=== PATIENT | male | born 1940 | race Asian ===

== ENCOUNTER 2017-05-11 14:53 | Emergency (ER) | payer OTHER ==
[~2017-05-11] VITALS: Ht 170.2 cm; Wt 72.6 kg
[2017-05-11] MEDS ORDERED: VITA1TAB20 PO (15:09)
[2017-05-11] MEDS ORDERED: ATOR10TA PO (15:09)
[2017-05-11] MEDS ORDERED: METF10002 PO (15:09)
[2017-05-11] MEDS ORDERED: GLIM2TAB2 PO (15:09)
--- NOTE | 2017-05-11 15:09 | NUR ---
DR BERMEO AT THE BEDSIDE FOR EVAL AND EXAM.
[2017-05-11 15:39] LABS: BASOPHILS % (AUTO) 0.4 % (0.0-2.0); CARBON DIOXIDE 31 mmol/L (21-32); CHLORIDE 102 mmol/L (98-107); CREATININE 1.5 mg/dL (0.6-1.3); EOSINOPHILS # (AUTO) 0.2 K/uL (0.0-0.7); EOSINOPHILS % (AUTO) 3.3 % (0.0-7.0); GLUCOSE 183 mg/dL (74-106); HEMATOCRIT 43.2 % (40-50); HEMOGLOBIN 14.6 G/DL (14.0-18.0); LYMPHOCYTES # (AUTO) 0.9 K/UL (0.8-4.8); LYMPHOCYTES % (AUTO) 14.8 % (20.5-51.5); MEAN CORPUSCULAR HEMOGLOBIN 32.1 UUG (27.0-31.0); MEAN CORPUSCULAR HGB CONC 34 g/dL (32.0-37.0); MEAN CORPUSCULAR VOLUME 95.5 FL (82.0-92.0); MONOCYTES # (AUTO) 0.4 K/UL (0.1-1.30); MONOCYTES % (AUTO) 6.2 % (0.0-11.0); NEUTROPHILS # (AUTO) 4.6 K/UL (1.8-8.9); NEUTROPHILS % (AUTO) 75.3 % (38.5-71.5); PLATELET COUNT (AUTO) 186 K/UL (150-450); POTASSIUM 3.9 mmol/L (3.5-5.1); RED BLOOD CELL COUNT(AUTO) 4.53 MIL/UL (4.7-6.1); UREA NITROGEN, BLOOD 25 mg/dL (7-18); WHITE BLOOD COUNT (AUTO) 6.1 K/UL (4.0-11.2)
[2017-05-11 15:45] LABS: ALANINE AMINOTRANSFERASE 12 U/L (16-63); ALKALINE PHOSPHATASE 85 U/L (50-136); ASPARTATE AMINOTRANSFERASE 16 U/L (15-37); BILIRUBIN,TOTAL 0.3 mg/dL (0.2-1.0); CREATINE KINASE, TOTAL 79 U/L (39-308)
--- NOTE | 2017-05-11 16:41 | NUR ---
PT WALKED TO BATHROOM W/ STEADY GAIT.
[2017-05-11] MEDS: ACETAMINOPHEN 650 MG/20.3 ML LIQUID UDC PO ONE ×2 (17:02→17:05)
[2017-05-11] MEDS ORDERED: ACETAMINOPHEN ES 500 MG TABLET ONE (17:08)
[2017-05-11] MEDS ORDERED: ACETAMINOPHEN ES 500 MG TABLET PO ONE (17:15)
--- NOTE | 2017-05-11 17:36 | NUR ---
Patient discharged to home in stable conditon. Written and verbal after care instructions given. Patient verbalizes understanding of instructions.
[2017-05-11 17:37] VITALS: BP 149/77
== END 2017-05-11 17:37 | disposition home or self-care (01) ==
LOC: ER 14:55
DX: S06.0X0A Concussion without loss of consciousness, initial encounter (principal); R42 Dizziness and giddiness; M54.2 Cervicalgia; E11.9 Type 2 diabetes mellitus without complications; V89.2XXA Person injured in unspecified motor-vehicle accident, traffic, initial encounter; Y93.89 Activity, other specified; Y99.8 Other external cause status; Y92.89 Other specified places as the place of occurrence of the external cause
CPT/HCPCS: 36415; 70030-TC; 70450; 71010; 85025; 93005; A4663